=== PATIENT | male | born 1960 | race Caucasian/White ===

== ENCOUNTER → 2021-09-27 17:04 | Outpatient (CLI) | payer BC, SELFPAY ==
[2021-09-27 17:48] LABS: Add Manual Diff / Slide Review NO; Basophils Absolute Auto 100 /uL (0-100); Basophils Percent Auto 1.9 % (0-2); Eosinophils Absolute Auto 700 /uL (0-450); Hematocrit 41.9 % (41-53); Hemoglobin 14.4 g/dL (13.5-17.5); Lymphocytes Absolute Auto 1900 /uL (1100-4500); Lymphocytes Percent Auto 28.4 % (25-40); Mean Corpuscular HGB Conc 34.3 % (30-36); Mean Corpuscular Hemoglobin 29.9 PG (26-34); Mean Corpuscular Volume 87.1 fL (80-100); Monocytes Absolute Auto 400 /uL (0-900); Monocytes Percent Auto 6.5 % (3-14); Neutrophils Absolute Auto 3600 /uL (1500-7000); Neutrophils Percent Auto 53.2 % (50-75); Platelet Count 207 X10^3/uL (150-400); Red Blood Cell Count 4.81 X10^6/uL (4.5-5.9); Red Cell Distribution Width 13.8 % (11.6-14.8); White Blood Cell Count 6.7 X10^3/uL (4.5-11.0)
[2021-09-27 17:52] LABS: Alanine Aminotransferase 24 IU/L (<50); Albumin 4.6 g/dL (3.5-5.0); Albumin Globulin Ratio 1.5 (1.0-2.8); Alkaline Phosphatase 65 U/L (38-126); Aspartate Aminotransferase 36 IU/L (17-59); BUN Creatinine Ratio 27.6 (6-22); Bilirubin Total 0.5 mg/dL (0.2-1.3); Blood Urea Nitrogen 24 mg/dL (9-20); Calcium 9.6 mg/dL (8.4-10.2); Carbon Dioxide 29 mmol/L (22-32); Chloride 103 mmol/L (98-107); Cholesterol 230 mg/dL (140-199); Estimated Glomerular Filt Rate > 60.0 mL/min (>60); Globulin 3.1 g/dL (1.7-4.1); Glucose 97 mg/dL (70-100); HDL Cholesterol 82 mg/dL (40-60); HEMOLYSIS < 15 (0-50); LDL Cholesterol Calculated 123 mg/dL (<100); Potassium 3.9 mmol/L (3.4-5.1); Sodium 138 mmol/L (137-145); Total Protein 7.7 g/dL (6.3-8.2); Triglycerides 125 mg/dL (35-150)
[2021-09-27 18:21] LABS: Thyroid Stimulating Hormone 0.668 uIU/mL (0.47-4.68)
== END ==
PROVIDERS: PCP Internal Medicine; Referring Provider Internal Medicine; Visit Provider Internal Medicine
DX: I10 Essential (primary) hypertension (principal)
CPT/HCPCS: 36415; 80053; 80061; 84443; 85025

== ENCOUNTER → 2022-04-11 11:22 | Outpatient (CLI) | payer BC, SELFPAY ==
[2022-04-11 14:53] LABS: Cholesterol 249 mg/dL (140-199); HDL Cholesterol 64 mg/dL (40-60); LDL Cholesterol Calculated 161 mg/dL (<100); Triglycerides 121 mg/dL (35-150)
[2022-04-11 15:13] LABS: Prostate Specific Antigen Scrn 0.663 ng/mL (0.1-4.0)
== END ==
PROVIDERS: PCP Internal Medicine; Referring Provider Internal Medicine; Visit Provider Internal Medicine
DX: Z00.00 Encounter for general adult medical examination without abnormal findings (principal); E78.2 Mixed hyperlipidemia; Z12.5 Encounter for screening for malignant neoplasm of prostate
CPT/HCPCS: 36415; 80061; G0103

== ENCOUNTER → 2022-07-04 09:37 | Outpatient (CLI) | payer BC, SELFPAY ==
[2022-07-04 12:07] LABS: COVID19 -Nasal RAPID Negative (Negative)
== END ==
PROVIDERS: PCP Internal Medicine; Visit Provider Surgery
DX: Z20.822 Contact with and (suspected) exposure to COVID-19 (principal); Z01.812 Encounter for preprocedural laboratory examination
CPT/HCPCS: 87635; C9803

== ENCOUNTER 2022-07-05 14:28 | Day surgery (SDC) | payer BC, SELFPAY ==
[2022-07-05 14:42] VITALS: BP 142/81; PULSE 42; RESP 16; TEMP 36.3; O2SAT 98; BMI 22.5
[2022-07-05] MEDS: LACTATED RINGERS 1,000 ML 84 ML IV (14:50)
--- NOTE | 2022-07-05 15:29 | PM.HP.1 ---
History of Present Illness History of Present Illness Date Patient Seen: 07/05/22 Time Patient Seen: 15:29 Chief complaint: SCREENING COLONOSCOPY Narrative: Roosevelt is a 62-year-old man who is here for a colonoscopy for colon cancer screening. He has no known family history of colon cancer. Patient History Medical History (Updated 07/05/22 @ 15:29 by Jostin Serrano MD) Essential (primary) hypertension Ganglion cyst of right foot LVH (left ventricular hypertrophy) Mixed hyperlipidemia Sinus bradycardia Tinnitus (~1998) Surgical History Anesthesia History of hernia repair (~2004) Family & Social History Family History Father Hypertension Cancer Hyperlipidemia Sister Hypertension Brother Hypertension Mother Hypertension Sister Cancer Grandfather Cancer Grandmother Cancer Social History: household members spouse Tobacco & Substance use: Smoking Status Never smoker alcohol intake current alcohol intake frequency 0-2 drinks per day Substance Use Type does not use Meds Home Medications and Allergies Home Medications Medication Instructions Recorded Confirmed Type amlodipine 2.5 mg tablet 2.5 mg PO DAILY #90 tabs 04/11/22 07/05/22 Rx sodium sul 1.479 gram-potas ch See Rx Instructions PO PER PKG DIR 06/04/22 07/05/22 Rx 0.188 gram-magnes sul 0.225 gram #24 tabs tablet (Sutab) Allergies Allergy/AdvReac Type Severity Reaction Status Date / Time Penicillins Allergy Severe Rash Verified 07/05/22 14:41 Exam Vital Signs (past 8 hours): - 07/05/22 14:42 Temperature 97.4 F L Pulse Rate 42 L Respiratory Rate 16 Blood Pressure 142/81 H Pulse Oximetry 98 Oxygen Delivery Method Room Air Oxygen Delivery Method Room Air Const General: healthy appearing Assessment & Plan Assessment and plan (1) Colon cancer screening: Status: Acute Plan We reviewed the risks and benefits of colonoscopy for colon cancer screening and he would like to proceed. Time Spent With Patient Critical Care time: I spent a total of [] minutes of critical care time on this patient's care today; this time is exclusive of procedural time.
--- NOTE | 2022-07-05 15:59 | PM.OP.COLON ---
Operative Date/Time/Diagnoses Date of procedure: 07/05/22 Time of procedure: 15:59 Pre-op diagnosis: Colon cancer screening Post-op diagnosis: same Procedure & Clinicians Study performed: Colonoscopy Same procedure as scheduled: Yes Surgeon: Jostni Serrano Procedure Notes Procedure in detail: Surgeon: Jostin Serrano MD Anesthesia: Dr. Nayak Procedure: The patient was brought to the endoscopy suite, placed in left lateral decubitus position. The patient was connected to monitoring devices. A time-out was performed. Sedation was administered. Once the patient was adequately sedated, a digital rectal exam was performed and was normal. The scope was then inserted and advanced to the cecum where the appendiceal orifice was identified and photographed. The scope was then slowly withdrawn over greater than 6 minutes. The mucosa was thoroughly inspected. No abnormalities were seen. The scope was retroflexed in the rectum. No abnormalities were seen. The scope was straightened and removed. The patient was awakened and brought to recovery. Scope withdrawal time: 8 minutes Sedation time: 12 minutes EBL: 0 Findings: Normal colon Post-procedure Recommendations: Colonoscopy in 10 years
[2022-07-05 16:03] VITALS: BP 103/67; PULSE 64; RESP 16; TEMP 36.6; O2SAT 96
[2022-07-05 16:07] VITALS: BP 111/65; PULSE 54; RESP 14; O2SAT 98
[2022-07-05 16:12] VITALS: BP 121/72; PULSE 56; RESP 12; O2SAT 98
[2022-07-05 16:24] VITALS: BP 122/79; PULSE 55; RESP 16; TEMP 36.6; O2SAT 98
== END 2022-07-05 16:35 | disposition home or self-care (01) ==
PROVIDERS: PCP Internal Medicine; Referring Provider Surgery; Visit Provider Surgery
PROC: 0DJD8ZZ Inspection of Lower Intestinal Tract, Via Natural or Artificial Opening Endoscopic (ICD-10-PCS; CPT 45378; principal; 2022-07-05 13:45)
DX: Z12.11 Encounter for screening for malignant neoplasm of colon (principal)
CPT/HCPCS: 45378

== ENCOUNTER → 2023-01-03 11:26 | Outpatient (CLI) | payer BC, SELFPAY ==
[2023-01-03 12:13] LABS: Hematocrit 38.9 % (41-53); Hemoglobin 13.1 g/dL (13.5-17.5); Mean Corpuscular HGB Conc 33.7 % (30-36); Mean Corpuscular Hemoglobin 29.8 PG (26-34); Mean Corpuscular Volume 88.3 fL (80-100); Platelet Count 200 X10^3/uL (150-400); Red Cell Distribution Width 14.2 % (11.6-14.8); White Blood Cell Count 5.3 X10^3/uL (4.5-11.0)
[2023-01-03 12:32] LABS: Alanine Aminotransferase 27 IU/L (<50); Albumin Globulin Ratio 1.4 (1.0-2.8); Alkaline Phosphatase 69 U/L (38-126); Aspartate Aminotransferase 37 IU/L (17-59); BUN Creatinine Ratio 28.4 (6-22); Bilirubin Total 0.7 mg/dL (0.2-1.3); Blood Urea Nitrogen 21 mg/dL (9-20); Calcium 8.9 mg/dL (8.4-10.2); Carbon Dioxide 30 mmol/L (22-32); Chloride 103 mmol/L (98-107); Cholesterol 200 mg/dL (140-199); Estimated Glomerular Filt Rate > 60 mL/min (>60); Globulin 2.8 g/dL (1.7-4.1); Glucose 97 mg/dL (80-110); HDL Cholesterol 69 mg/dL (40-60); HEMOLYSIS < 15 (0-50); LDL Cholesterol Calculated 117 mg/dL (<100); Potassium 4.5 mmol/L (3.4-5.1); Sodium 137 mmol/L (137-145); Total Protein 6.8 g/dL (6.3-8.2); Triglycerides 71 mg/dL (35-150)
== END ==
PROVIDERS: PCP Internal Medicine; Referring Provider Internal Medicine; Visit Provider Internal Medicine
DX: E78.2 Mixed hyperlipidemia (principal); I10 Essential (primary) hypertension; I51.7 Cardiomegaly
CPT/HCPCS: 36415; 80053; 80061; 85027

== ENCOUNTER → 2023-06-19 09:17 | Outpatient (CLI) | payer BC, OTHER, SELFPAY ==
--- NOTE | 2023-06-19 | DI.MRI.S_ITS ---
PROCEDURE: MR KNEE LT WO CON INDICATIONS: R/O MEDIAL MENISCAL TEAR TECHNIQUE: Noncontrast sagittal PD fast spin echo and T2 fast spin echo with fat saturation, sagittal 3-D FLASH with fat saturation; coronal T1 spin echo and PD fast spin echo with fat saturation, and axial PD fast spin echo with fat saturation through the knee. COMPARISON: None. FINDINGS: Image quality: Diagnostic. Patient motion is seen. Menisci: There is peripheral displacement of medial meniscus bowing medial collateral ligament. Complex tear involving body and posterior horn of medial meniscus is seen extending to both superior and inferior articulating surfaces. The medial meniscus is intact. The meniscal root ligaments appear intact. Cruciate ligaments: The anterior cruciate ligament is thickened with intrasubstance T2 hyperintense signal. The posterior cruciate ligament is intact. Medial structures: The medial collateral ligament appears thickened with adjacent soft tissue edema. Visualized portions of the pes anserinus tendons appear normal. No abnormal bursal fluid. Lateral structures: The lateral collateral ligament, long and short heads of the biceps femoris tendon appear intact. The popliteus tendon appears normal. Iliotibial band appears normal. Anterior structures: The quadriceps and patellar tendons appear intact. Patellar alignment is normal. No femoral trochlear dysplasia or ventral trochlear prominence. No edema in the infrapatellar fat pad. Bones and cartilage: [id number] tricompartmental osteoarthritis and chondromalacia is seen most notably in medial femoral tibial compartment and apex of patella cartilage. No fracture or dislocation. Likely bony contusion involving medial femoral condyle weight-bearing portion and adjacent medial tibial plateau with mild marrow edema. Joint space: There is moderate knee joint fluid. No Andres's cyst. Normal appearing synovial plicae are incidentally noted. IMPRESSION: 1. Complex tear involving body and posterior horn of medial meniscus extending to both superior and inferior articulating surfaces. The lateral meniscus is intact. 2. Low-grade ACL sprain. The PCL is intact. 3. Low to moderate grade MCL sprain/partial-thickness tear. 4. [id number]-[id number] tricompartmental osteoarthritis and chondromalacia most notably in medial femoral tibial compartment and apex of patella cartilage. No fracture or dislocation. Bony contusion in medial femoral tibial compartment. 5. Moderate joint effusion, no loose bodies. Dictated by: Fam Lacy M.D. on 06/19/2023 at 22:26 Approved by: Fam Lacy M.D. on 06/19/2023 at 22:29
== END ==
PROVIDERS: PCP Internal Medicine; Referring Provider Orthopaedic Surgery; Visit Provider Orthopaedic Surgery
DX: S83.232A Complex tear of medial meniscus, current injury, left knee, initial encounter (principal); S83.512A Sprain of anterior cruciate ligament of left knee, initial encounter; S83.412A Sprain of medial collateral ligament of left knee, initial encounter; S80.02XA Contusion of left knee, initial encounter; M17.12 Unilateral primary osteoarthritis, left knee; M94.262 Chondromalacia, left knee; M25.462 Effusion, left knee; M23.92 Unspecified internal derangement of left knee
CPT/HCPCS: 73721

== ENCOUNTER → 2024-01-19 12:45 | Outpatient (CLI) | payer BC, OTHER, SELFPAY | PROVIDERS: PCP Internal Medicine; Visit Provider Physician Assistant | DX: J02.9 Acute pharyngitis, unspecified (principal) | CPT/HCPCS: 87070 ==

== ENCOUNTER → 2024-02-24 16:19 | Outpatient (CLI) | payer BC, OTHER, SELFPAY ==
[2024-02-24 17:37] LABS: Hematocrit 38.5 % (41-53); Hemoglobin 13.1 g/dL (13.5-17.5); Mean Corpuscular HGB Conc 34.1 % (30-36); Mean Corpuscular Hemoglobin 30.1 PG (26-34); Mean Corpuscular Volume 88.3 fL (80-100); Platelet Count 209 X10^3/uL (150-400); Red Blood Cell Count 4.36 X10^6/uL (4.5-5.9); Red Cell Distribution Width 14.3 % (11.6-14.8); White Blood Cell Count 8.3 X10^3/uL (4.5-11.0)
[2024-02-24 18:21] LABS: HEMOLYSIS < 15 (0-50)
[2024-02-24 18:37] LABS: Aspartate Aminotransferase 39 IU/L (17-59); BUN Creatinine Ratio 27.4 (6-22); Blood Urea Nitrogen 26 mg/dL (9-20); Calcium 9.2 mg/dL (8.4-10.2); Carbon Dioxide 26 mmol/L (22-32); Chloride 105 mmol/L (98-107); Cholesterol 208 mg/dL (140-199); Estimated Glomerular Filt Rate > 60 mL/min (>60); Glucose 88 mg/dL (80-110); HDL Cholesterol 77 mg/dL (40-60); LDL Cholesterol Calculated 114 mg/dL (<100); Potassium 4.3 mmol/L (3.4-5.1); Sodium 137 mmol/L (137-145); Triglycerides 85 mg/dL (35-150)
[2024-02-24 21:36] LABS: Prostate Specific Antigen Scrn 1.68 ng/mL (0.1-4.0)
== END ==
LOC: LAB 16:19
PROVIDERS: PCP Internal Medicine; Referring Provider Internal Medicine; Visit Provider Internal Medicine
DX: I51.7 Cardiomegaly (principal); Z12.5 Encounter for screening for malignant neoplasm of prostate; I10 Essential (primary) hypertension
CPT/HCPCS: 36415; 80048; 80061; 84450; 85027; G0103

== ENCOUNTER → 2024-03-17 09:04 | Outpatient (CLI) | payer BC, OTHER, SELFPAY ==
--- NOTE | 2024-03-17 09:05 | DI.RAD.S_ITS ---
PROCEDURE: XR TOE RT MIN 2V INDICATIONS: Right great toe injury TECHNIQUE: 3 views of the right 1st toe(s) acquired. COMPARISON: None. FINDINGS: Bones: Minimally displaced 1st distal phalange fracture. Soft tissues: No suspicious soft tissue densities. IMPRESSION: First distal phalange fracture. Dictated by: Lucía Lundy MD, PhD on 03/17/2024 at 9:19 Approved by: Lucía Lundy MD, PhD on 03/17/2024 at 9:20
== END ==
PROVIDERS: PCP Internal Medicine; Referring Provider Physician Assistant Surgical; Visit Provider Physician Assistant Surgical
DX: S92.424A Nondisplaced fracture of distal phalanx of right great toe, initial encounter for closed fracture (principal); X58.XXXA Exposure to other specified factors, initial encounter
CPT/HCPCS: 73660

== ENCOUNTER → 2024-10-20 08:27 | Outpatient (CLI) | payer BC, OTHER, SELFPAY ==
--- NOTE | 2024-10-20 18:13 | DI.NM.S_ITS ---
DATE OF SERVICE: 10/20/2024 EXERCISE STRESS TEST INDICATIONS: Paroxysmal AFib. CARDIAC STRESS: The patient underwent exercise stress test under the supervision of an attending staff. He walked on Danny protocol for 13 minutes and 12 seconds, achieved maximum heart rate of 146, which was 92% of target heart rate. 14.8 METS of workload and MARY -51%. Resting blood pressure 126/84 and peak blood pressure 172/108 mmHg. Baseline rhythm sinus with sinus bradycardia, a heart rate up to 46 beats per minute with repolarization changes. During stress, no convincing ischemic changes seen. No significant arrhythmias seen. No chest pain. [place] some shortness of breath. Normal recovery. CONCLUSION: Exercise stress test is negative for inducible ischemia. Excellent exercise tolerance. MARY -51%. 14.8 METS of workload. Peak blood pressure 172/108 mmHg. 92% of target heart rate achieved. No anginal symptoms. No significant arrhythmias. Normal recovery. Overall, low-risk exercise stress test. Roosevelt Mark - MEENU/renata/VÍCTOR doc#: [id number]/job#: [id number] dd: 10/20/2024 16:48:00 dt: 10/20/2024 17:52:00 DICTATING /COPIES TO: Sterling Amezquita MD COPIES MNE: CHAPIS;
== END ==
LOC: NUCM 08:27
PROVIDERS: PCP Internal Medicine; Referring Provider Nurse Practitioner Family; Visit Provider Nurse Practitioner Family
DX: I48.0 Paroxysmal atrial fibrillation (principal); R00.2 Palpitations
CPT/HCPCS: 93017

== ENCOUNTER → 2025-05-18 14:51 | Outpatient (CLI) | payer BC, OTHER, SELFPAY ==
[2025-05-18 15:14] LABS: Hematocrit 40.8 % (41-53); Hemoglobin 13.9 g/dL (13.5-17.5); Mean Corpuscular HGB Conc 34.0 % (30-36); Mean Corpuscular Hemoglobin 29.8 PG (26-34); Mean Corpuscular Volume 87.7 fL (80-100); Platelet Count 217 X10^3/uL (150-400)
[2025-05-18 15:36] LABS: HEMOLYSIS < 15 (0-50); Iron 97 ug/dL (49-181)
[2025-05-18 15:40] LABS: Alanine Aminotransferase 41 IU/L (<50); Albumin 4.4 g/dL (3.5-5.0); Albumin Globulin Ratio 1.6 (1.0-2.8); Alkaline Phosphatase 67 U/L (38-126); Blood Urea Nitrogen 28 mg/dL (9-20); Calcium 9.3 mg/dL (8.4-10.2); Carbon Dioxide 27 mmol/L (22-32); Chloride 104 mmol/L (98-107); Cholesterol 206 mg/dL (140-199); Estimated Glomerular Filt Rate > 60 mL/min (>60); Globulin 2.8 g/dL (1.7-4.1); Glucose 97 mg/dL (70-99); HDL Cholesterol 88 mg/dL (40-60); HEMOLYSIS < 15 (0-50); Potassium 4.4 mmol/L (3.4-5.1); Sodium 137 mmol/L (137-145); Total Protein 7.2 g/dL (6.3-8.2); Triglycerides 119 mg/dL (35-150)
[2025-05-18 15:47] LABS: Percent Iron Saturation 33 % (20-50); Total Iron Binding Capacity 298 ug/dL (261-462); Transferrin 250 mg/dL (206-381)
[2025-05-18 16:11] LABS: TSH w/ Reflex to FT4 1.14 uIU/mL (0.47-4.68)
[2025-05-18 16:16] LABS: Ferritin 73 ng/mL (18-464)
[2025-05-18 16:31] LABS: Vitamin B12 Reflex MMA if <400 951 pg/mL (239-931)
== END ==
PROVIDERS: PCP Internal Medicine; Referring Provider Internal Medicine; Visit Provider Internal Medicine
DX: E78.2 Mixed hyperlipidemia (principal); I51.7 Cardiomegaly; I10 Essential (primary) hypertension; D64.9 Anemia, unspecified; E53.8 Deficiency of other specified B group vitamins; Z12.5 Encounter for screening for malignant neoplasm of prostate
CPT/HCPCS: 36415; 80053; 80061; 82607; 82728; 83540; 83550; 84443; 85027; G0103